=== PATIENT | male | born 1940 | race Caucasian/White ===

== ENCOUNTER 2017-07-02 00:07 | Emergency (ER) | payer OTHER ==
[~2017-07-02] VITALS: Ht 188 cm; Wt 110.0 kg
[2017-07-02 00:09] VITALS: BP 160/73; PULSE 58; RESP 16; TEMP 98.6; O2SAT 98
--- NOTE | 2017-07-02 00:26 | PD ---
HPI Chief Complaint: Injury Time Seen by Provider: 00:20 Travel History International Travel<30 days: No Contact w/Intl Traveler<30days: No Traveled to known affect area: No History of Present Illness HPI Patient is a 77-year-old male presents emergency department for evaluation of left flank pain. Patient states he was getting ready for a shower when he slipped on wet tile and hit his left flank on the side of the bathtub. He denies any blood thinner use denies any head injury or neck injury. He states the pain is rather severe, associated with some mild shortness of breath and worsens when he takes a deep breath. Denies any extremity injury back injury neck injury head injury PFSH Past Medical History Diminished Hearing: No Gastrointestinal Disorders: Yes (DIVERTICULITIS) Hypertension: Yes Immunizations Current: Yes Past Surgical History Cardiac Surgery: Yes (RIGHT CARTOID ARTERY) Tonsillectomy: Yes Social History Alcohol Use: Yes Tobacco Use: No Substance Use: No Allergies-Medications (Allergen,Severity, Reaction): Coded Allergies: No Known Allergies (Unverified , 07/02/17) Reported Meds & Prescriptions Reported Meds & Active Scripts Active [place] (Hydrocodone-Acetaminophen) 10-325 Mg Tab 1 Tab PO Q6H PRN Review of Systems Except as stated in HPI: all other systems reviewed are Neg Physical Exam Narrative GENERAL: Well-developed well-nourished, quite pleasant male in no obvious distress SKIN: Focused skin assessment warm/dry. HEAD: Atraumatic. Normocephalic. EYES: Pupils equal and round. No scleral icterus. No injection or drainage. ENT: No nasal bleeding or discharge. Mucous membranes pink and moist. NECK: Trachea midline. No JVD. CARDIOVASCULAR: Regular rate and rhythm. No murmur appreciated. RESPIRATORY: No accessory muscle use. Clear to auscultation. Breath sounds equal bilaterally. GASTROINTESTINAL: Abdomen soft, non-tender, nondistended. Hepatic and splenic margins not palpable. MUSCULOSKELETAL: No obvious deformities. No clubbing. No cyanosis. No edema. No midline CT or L-spine tenderness, is fairly tender to the left flank over the inferior most ribs. No overlying laceration or contusion. Extremities are atraumatic. Pulses motor and sensory intact distally in all 4 extremity NEUROLOGICAL: Awake and alert. No obvious cranial nerve deficits. Motor grossly within normal limits. Normal speech. PSYCHIATRIC: Appropriate mood and affect; insight and judgment normal. Data Data Last Documented VS Vital Signs Date Time Temp Pulse Resp B/P (MAP) Pulse Ox O2 Delivery O2 Flow Rate FiO2 07/02/17 04:08 07/02/17 03:00 58 16 99 Room Air 07/02/17 00:09 98.6 Orders Orders Iv Access Insert/Monitor (07/02/17 00:24) Ecg Monitoring (07/02/17 00:24) Oximetry (07/02/17 00:24) Sodium Chloride 0.9% Flush (Ns Flush) (07/02/17 00:30) Morphine Inj (Morphine Inj) (07/02/17 00:30) Chest, Pa & Lat (07/02/17 ) Ribs, Uni (W/O Exp Cxr) (07/02/17 ) Hydromorphone Pf Inj (Dilaudid Pf Inj) (07/02/17 01:45) Ct Thorax/ Chest W Iv Contrast (07/02/17 ) Ct Abd/Pel W Iv Contrast(Rout) (07/02/17 ) Basic Metabolic Panel (Bmp) (07/02/17 01:39) Complete Blood Count With Diff (07/02/17 01:39) Type And Screen (07/02/17 01:39) Iohexol 350 Inj (Omnipaque 350 Inj) (07/02/17 03:01) Resp Incentive Spirometry (07/02/17 ) Hydromorphone Pf Inj (Dilaudid Pf Inj) (07/02/17 03:30) Orphenadrine Inj (Norflex Inj) (07/02/17 03:30) Ed Discharge Order (07/02/17 03:38) Oxycodone-Acetamin 5-325 Mg (Percocet (07/02/17 03:45) Labs Laboratory Tests Test 07/02/17 01:55 White Blood Count 10.7 TH/MM3 Red Blood Count 4.22 MIL/MM3 Hemoglobin 14.7 GM/DL Hematocrit 40.9 % Mean Corpuscular Volume 97.1 FL Mean Corpuscular Hemoglobin 34.8 PG Mean Corpuscular Hemoglobin Concent 35.8 % Red Cell Distribution Width 14.5 % Platelet Count 136 TH/MM3 Mean Platelet Volume 9.4 FL Neutrophils (%) (Auto) 79.9 % Lymphocytes (%) (Auto) 8.2 % Monocytes (%) (Auto) 10.3 % Eosinophils (%) (Auto) 1.2 % Basophils (%) (Auto) 0.4 % Neutrophils # (Auto) 8.5 TH/MM3 Lymphocytes # (Auto) 0.9 TH/MM3 Monocytes # (Auto) 1.1 TH/MM3 Eosinophils # (Auto) 0.1 TH/MM3 Basophils # (Auto) 0.0 TH/MM3 CBC Comment DIFF FINAL Differential Comment Blood Urea Nitrogen 22 MG/DL Creatinine 0.80 MG/DL Random Glucose 108 MG/DL Calcium Level 8.3 MG/DL Sodium Level 141 MEQ/L Potassium Level 4.0 MEQ/L Chloride Level 107 MEQ/L Carbon Dioxide Level 26.7 MEQ/L Anion Gap 7 MEQ/L Estimat Glomerular Filtration Rate 93 ML/MIN [facility] Medical Decision Making Medical Screen Exam Complete: Yes Emergency Medical Condition: Yes Differential Diagnosis Rib fracture, pulmonary contusion, hemothorax, pneumothorax, kidney injury. Narrative Course Patient was roomed in the emergency department, chest x-ray does show small fluid accumulation in the chest and the singular rib fracture. Given his age these findings I have suggested to him a CAT scan was indicated to rule out internal injury. He verbalized understanding and agreement. Last 24 hours Impressions Ribs X-Ray 07/02/17 0000 Signed Impressions: Service Date/Time: Sunday, July 02, 2017 00:46 - CONCLUSION: 1. Isolated, nondisplaced fracture through the anterior aspect of the left seventh rib 2. Multiple old healed fracture deformities laterally in the right mid chest. 3. No pneumothorax. Minimal left basilar atelectatic changes. Vaibhav Reynolds MD Chest X-Ray 07/02/17 0000 Signed Impressions: Service Date/Time: Sunday, July 02, 2017 00:39 - CONCLUSION: Hypoinflation with possible small left-sided effusion and concomitant left basilar atelectatic changes Vaibhav Reynolds MD Chest CT 07/02/17 0000 Signed Impressions: Service Date/Time: Sunday, July 02, 2017 02:56 - CONCLUSION: 1. Acute fracture of the costochondral cartilage of the left seventh rib. Fracture deformities of multiple lateral right mid chest ribs. 2. Lungs are clear. Vaibhav Reynolds MD Abdomen/Pelvis CT 07/02/17 0000 Signed Impressions: Service Date/Time: Sunday, July 02, 2017 02:56 - CONCLUSION: 1. Theresa mesentery. Nonspecific finding but can be seen in chronic mesenteritis. 2. Diverticular disease of the descending and sigmoid colon without diverticulitis. 3. Spontaneously dense fluid in the gallbladder lumen. Nonspecific but usually benign finding which can be seen with vicarious excretion of contrast or milk of calcium. 4. Apparent fractures of the anterior costochondral cartilage of the left seventh rib. Multiple old right lateral rib fractures. Vaibhav Reynolds MD Discussed the incidental findings with the patient, there is no indication further workup of this patient at this time. His pain is well under control. Discussed incentive spirometry pain control and return to ED criteria Diagnosis Primary Impression: Rib fracture Med/Other Pt SpecificInfo: Prescription(s) given Scripts Hydrocodone-Acetaminophen ([place]) 10-325 Mg Tab 1 TAB PO Q6H Y for PAIN, #15 TAB 0 Refills Prov: Oren Orta MD 07/02/17 Disposition: 01 DISCHARGE HOME Condition: Stable Oren Orta MD Jul 02, 2017 00:26
[2017-07-02] MEDS ORDERED: SODIUM CHLORIDE 0.9% FLUSH 10 ML FLUSH IV FLUSH PRN (00:30)
[2017-07-02] MEDS ORDERED: MORPHINE SULFATE 8 MG/ML INJ IV PUSH ONE (00:30)
[2017-07-02 00:55] VITALS: BP 155/68; PULSE 59; RESP 18; O2SAT 98
--- NOTE | 2017-07-02 01:31 | RADRPT ---
EXAM DATE/TIME: 07/02/2017 00:39 [facility] COMPARISON: No previous studies available for comparison. INDICATIONS : Lateral left rib pain from fall. MEDICAL HISTORY : None. SURGICAL HISTORY : None. ENCOUNTER: Initial ACUITY: 1 day PAIN SCORE: 10/10 LOCATION: Left chest FINDINGS: PA and lateral views of the chest demonstrate the lungs to be hypoinflated with no acute infiltrate. There may be a small left-sided effusion with some blunting of the left costophrenic angle, however. Accounting for low lung volumes, the heart size is normal. There is suggestion of old healed fracture deformities of the lateral aspect of multiple right mid ribs. Degenerative spurring of the dorsal sp ine. Osseous structures are otherwise intact. CONCLUSION: Hypoinflation with possible small left-sided effusion and concomitant left basilar atelectatic c diallo Reynolds MD on July 02, 2017 at 1:27 Board Certified Radiologist. This report was verified electronically.
--- NOTE | 2017-07-02 01:34 | RADRPT ---
EXAM DATE/TIME: 07/02/2017 00:46 [facility] COMPARISON: No previous studies available for comparison. INDICATIONS : Fell on left side in shower, pain lateral left ribs. MEDICAL HISTORY : None. SURGICAL HISTORY : None. ENCOUNTER: Initial ACUITY: 1 day PAIN SCORE: 10/10 LOCATION: Left ribs. FINDINGS: Multiple views of the right ribs were performed. Isolated, nondisplaced fracture through the anterior aspect of the left seventh rib. Old healed lateral fracture deformities of multiple ribs in the righ t mid chest. No pneumothorax. Mild atelectatic changes in the left lung base. CONCLUSION: 1. Isolated, nondisplaced fracture through the anterior aspect of the left seventh rib 2. Multiple old healed fracture deformities laterally in the right mid chest. 3. No pneumothorax. Minimal left basilar atelectatic changes. Vaibhav Reynolds MD on July 02, 2017 at 1:29 Board Certified Radiologist. This report was verified electronically.
[2017-07-02] MEDS ORDERED: HYDROmorphone HCL PF 2 MG/ML VIAL IV PUSH ONE ×2 (01:45→03:30)
[2017-07-02 02:07] LABS: AUTOMATED NEUTROPHIL # 8.5 TH/MM3 (1.8-7.7); BASOPHIL % 0.4 % (0.0-2.0); EOSINOPHIL # 0.1 TH/MM3 (0-0.4); EOSINOPHIL % 1.2 % (0.0-4.0); HEMATOCRIT 40.9 % (39.0-51.0); HEMOGLOBIN 14.7 GM/DL (13.0-17.0); LYMPH % 8.2 % (9.0-44.0); LYMPHOCYTE # 0.9 TH/MM3 (1.0-4.8); MEAN CELL VOLUME 97.1 FL (80.0-100.0); MEAN CORPUSCULAR HEMOGLOBIN 34.8 PG (27.0-34.0); MEAN CORPUSCULAR HGB CONC 35.8 % (32.0-36.0); MEAN PLATELET VOLUME 9.4 FL (7.0-11.0); MONO % 10.3 % (0.0-8.0); MONOCYTE # 1.1 TH/MM3 (0-0.9); NEUT % 79.9 % (16.0-70.0); PLATELET COUNT 136 TH/MM3 (150-450); RED BLOOD COUNT 4.22 MIL/MM3 (4.50-5.90); RED CELL DISTRIBUTION WIDTH 14.5 % (11.6-17.2); WHITE BLOOD COUNT 10.7 TH/MM3 (4.0-11.0)
[2017-07-02 02:33] LABS: BICARBONATE 26.7 MEQ/L (21.0-32.0); CALCIUM 8.3 MG/DL (8.5-10.1); CREATININE 0.8 MG/DL (0.60-1.30)
[2017-07-02 03:00] VITALS: BP 155/72; PULSE 58; RESP 16; O2SAT 99
[2017-07-02] MEDS ORDERED: IOHEXOL 350 MG/ML 10 ML VIAL (for RAD DIAG) IVCONTRAST ONE (03:01)
[2017-07-02] MEDS ORDERED: HYDR-3366 PO (03:29)
--- NOTE | 2017-07-02 03:29 | RADRPT ---
EXAM DATE/TIME: 07/02/2017 02:56 [facility] COMPARISON: RIBS LEFT (W/O PA CHEST), July 02, 2017, 0:46. INDICATIONS : Trauma, fall. Left side pain. IV CONTRAST: 100 cc Omnipaque 350 (iohexol) IV ; Cumulative dose for multiple exams. ORAL CONTRAST: No oral contrast ingested. RADIATION DOSE: 6.70 CTDIvol (mGy) ; Combined studies - Thorax/Abdomen/Pelvis MEDICAL HISTORY : Hypertension. Diverticulitis. SURGICAL HISTORY : None. ENCOUNTER: Initial ACUITY: 1 day PAIN SCALE: 5/10 LOCATION: Left abdomen TECHNIQUE: Volumetric scanning of the abdomen and pelvis was performed. Using automated exposure control and ad justment of the mA and/or kV according to patient size, radiation dose was kept as low as reasonably achievable to obtain optimal diagnostic quality images. DICOM format image data is available electro nically for review and comparison. FINDINGS: LOWER LUNGS: The visualized lower lungs are clear. LIVER: Homogeneous density without lesion. There is no dilation of the biliary tree. No calcified gallston es. Fluid in the gallbladder lumen is dense. This could be due to vicarious excretion of contrast if the patient had a recent CT scan or contrasted exam versus milk of calcium deposition. SPLEEN: Normal size without lesion. PANCREAS: Within normal limits. KIDNEYS: Normal in size and shape. There is no mass, stone or hydronephrosis. ADRENAL GLANDS: Within normal limits. VASCULAR: There is no aortic aneurysm. BOWEL/MESENTERY: "Missed the mesentery" in the midabdomen. Nonspecific finding that could be associated with a chronic mesenteritis. Diverticula disease of the descending and sigmoid colon without diverticulitis. ABDOMINAL WALL: Within normal limits. RETROPERITONEUM: There is no lymphadenopathy. BLADDER: No wall thickening or mass. REPRODUCTIVE: Within normal limits. INGUINAL: There is no lymphadenopathy or hernia. MUSCULOSKELETAL: There appears to be a minimally displaced fracture through the anterior aspect of the costochondral j unction involving the left seventh rib. Degenerative spurring of the thoracolumbar spine no additiona l fracture. Old healed fracture deformity of lateral right ribs. CONCLUSION: 1. "Theresa mesentery". Nonspecific finding but can be seen in chronic mesenteritis. 2. Diverticular disease of the descending and sigmoid colon without diverticulitis. 3. Spontaneously dense fluid in the gallbladder lumen. Nonspecific but usually benign finding which c an be seen with vicarious excretion of contrast or milk of calcium. 4. Apparent fractures of the anterior costochondral cartilage of the left seventh rib. Multiple old r ight lateral rib fractures. Vaibhav Reynolds MD on July 02, 2017 at 3:16 Board Certified Radiologist. This report was verified electronically.
[2017-07-02] MEDS ORDERED: ORPHENADRINE INJ 60 MG/2 ML AMP IM ONE (03:30)
--- NOTE | 2017-07-02 03:33 | RADRPT ---
EXAM DATE/TIME: 07/02/2017 02:56 [facility] COMPARISON: No previous studies available for comparison. INDICATIONS : Trauma, fall. Left side pain. IV CONTRAST: 100 cc Omnipaque 350 (iohexol) IV ; Cumulative dose for multiple exams. RADIATION DOSE: 6.70 CTDIvol (mGy) ; Combined studies - Thorax/Abdomen/Pelvis MEDICAL HISTORY : Hypertension. Diverticulitis. SURGICAL HISTORY : None. ENCOUNTER: Initial ACUITY: 1 day PAIN SCALE: 5/10 LOCATION: Left chest TECHNIQUE: Volumetric scanning of the chest was performed. Using automated exposure control and adjustment of t he mA and/or kV according to patient size, radiation dose was kept as low as reasonably achievable to obtain optimal diagnostic quality images. DICOM format image data is available electronically for review and comparison. Follow-up recommendations for detected pulmonary nodules are based at a minimum on nodule size and pa tient risk factors according to Fleischner Society Guidelines. FINDINGS: LUNGS: There is no consolidation or pneumothorax. No concerning pulmonary nodule is visualized. PLEURA: There is no pleural thickening or pleural effusion. MEDIASTINUM: The heart and great vessels demonstrate no acute abnormality. There is no mediastinal or hilar lymph adenopathy. AXILLAE: Within normal limits. No lymphadenopathy. SKELETAL: Fracture through the anterior costochondral cartilage of the left seventh rib. Old lateral right rib fractures.. MISCELLANEOUS: The visualized upper abdominal organs demonstrate no acute abnormality. CONCLUSION: 1. Acute fracture of the costochondral cartilage of the left seventh rib. Fracture deformities of mul tiple lateral right mid chest ribs. 2. Lungs are clear. Vaibhav Reynolds MD on July 02, 2017 at 3:27 Board Certified Radiologist. This report was verified electronically.
[2017-07-02] MEDS ORDERED: oxyCODONE/ACETAMINOPHEN 5 MG/325 MG TAB PO ONE (03:45)
== END 2017-07-02 04:09 | disposition home or self-care (01) ==
LOC: NEPE 00:07
DX: S22.32XA Fracture of one rib, left side, initial encounter for closed fracture (principal); W01.0XXA Fall on same level from slipping, tripping and stumbling without subsequent striking against object, initial encounter; I10 Essential (primary) hypertension
CPT/HCPCS: 71046; 71100; 71260; 74177; 80048; 85025; 86850; 86900; 86901; 94150; 96374; 96375; 99285; J1170; J2270; Q9967